=== PATIENT | female | born 1985 | race Caucasian/White ===

== ENCOUNTER 2022-07-16 19:48 | Emergency (ER) | payer MEDICAID, SELFPAY ==
--- NOTE | ~2022-07-16 | XR_ITS ---
EXAMINATION: XR chest 2V DATE: 07/16/2022 20:37 INDICATION: Chest pain TECHNIQUE: PA and lateral views of the chest are obtained. COMPARISON: None available FINDINGS: The lungs are free of acute opacities. No pleural effusion or pneumothorax. The cardiomedia stinal silhouette is normal. There is mild thoracic spondylosis. Surgical clips in the right upper qu adrant are likely from prior cholecystectomy. IMPRESSION: 1. No acute cardiopulmonary abnormality. Reviewed, dictated and finalized at location F.
[2022-07-16 19:51] VITALS: BP 126/85; PULSE 88; RESP 14; TEMP 36.6; O2SAT 100
--- NOTE | 2022-07-16 19:54 | ECG_ITS ---
Measurements Intervals [place] Rate: 89 P: 64 TN: 176 QRS: -15 QRSD: 114 T: 21 QT: 374 QTc: 457 Interpretive Statements SINUS RHYTHM DELAYED PRECORDIAL R/S TRANSITION BORDERLINE ECG NO PREVIOUS ECG AVAILABLE FOR COMPARISON Electronically Signed On 07-16-2022 21:55:17 CDT by Pete Santoro D.O.
[2022-07-16 20:09] LABS: Basophils Percent Auto 0.8 % (0.2-1.2); Eosinophils Absolute Auto 0.1 K/mm3 (0-0.3); Eosinophils Percent Auto 2.2 % (0-4.4); Hematocrit 26.3 % (37.0-47.0); Immature Granulocyte Absolute 0.01 K/mm3 (0.00-0.031); Immature Granulocyte Percent A 0.3 % (0-0.5); Lymphocytes Absolute Auto 1.42 K/mm3 (0.9-3.2); Lymphocytes Percent Auto 38.5 % (18.3-44.2); Mean Corpuscular HGB Conc 30.4 g/dl (32-36); Mean Corpuscular Hemoglobin 23.6 pg (26-34); Mean Corpuscular Volume 77.6 fl (80-100); Mean Platelet Volume 9.4 fl (7.4-10.4); Monocytes Absolute Auto 0.4 K/mm3 (0.1-0.6); Monocytes Percent Auto 10.3 % (2.6-8.5); Neutrophils Absolute Auto 1.8 K/mm3 (1.3-6.7); Neutrophils Percent Auto 47.9 % (45.5-73.1); Platelet Count Result 196 k/mm3 (150-375); Red Blood Count 3.39 M/mm3 (4.2-5.4); Red Cell Distribution Width 17.4 % (11.5-14.5); White Blood Count 3.7 K/mm3 (4.5-10.0)
[2022-07-16 20:19] LABS: INR 1.1; Prothrombin Time 13.8 Seconds (11.1-14.7)
[2022-07-16 20:20] LABS: Partial Thromboplastin Time 36.1 SECONDS (22.3-36.8)
[2022-07-16 20:25] LABS: Alanine Aminotransferase 99 U/L (6-35); Albumin Level 3.5 g/dL (3.5-5.1); Alkaline Phosphatase 118 U/L (38-126); Anion Gap 4 mmol/L (8-16); Aspartate Amino Transferase 75 U/L (14-36); Bilirubin,Total 0.4 mg/dL (0.2-1.3); Blood Urea Nitrogen 12 mg/dL (7-17); Carbon Dioxide 27 mmol/L (22-30); Chloride 107 mmol/L (98-107); Estimated CRCL calculation 151 ml/min; Estimated Glomerular Filt Rate > 60; Glucose 80 mg/dL (65-110); Lipase 35 U/L (23-300); Potassium 3.6 mmol/L (3.4-5.0); Sodium 138 mmol/L (137-145)
[2022-07-16 20:31] LABS: Troponin I < 0.012 ng/mL (0.000-0.034)
[2022-07-16 21:20] VITALS: BP 112/78; PULSE 78; RESP 20; O2SAT 99
--- NOTE | 2022-07-16 23:07 | ED.CHESTPAIN ---
HPI - Chest Pain General Chief Complaint: Chest Pain Stated Complaint: chest pain, anxiety Time Seen by Provider: 07/16/22 22:54 History of Present Illness HPI narrative: 36 year old female with a history of bacterial endocarditis, IVDU, here due to chest pain. Patient states she was at rest when she developed a severe right sided chest discomfort, similar to previous episodes of endocarditis. Was last treated with 6 weeks of antibiotics through her PICC last year. Denies any fevers, chills, nausea, vomiting. Related Data Allergies Allergy/AdvReac Type Severity Reaction Status Date / Time No Known Allergies Allergy Verified 07/16/22 23:12 Review of Systems Review of Systems: Gen.: Denies fevers or chills Eyes: Denies eye pain or visual change ENT: Denies congestion Respiratory: Denies shortness of breath or cough CV: Reports chest pain. GI: Denies abdominal pain nausea, emesis or diarrhea : denies burning, urgency, frequency or hematuria Musculoskeletal: Denies back pain or muscle pain Neuro: Denies numbness, tingling, weakness or focal weakness Skin: Denies rash Except as documented, all other systems reviewed and negative Exam Narrative: APPEARANCE: Well appearing, no pain in distress, well-nourished. Head: Normocephalic and atraumatic. EYES: PERRLA/EOMI, conjunctivae clear NOSE: No nasal drainage EARS: External ear normal in appearance THROAT: Oropharynx is clear. Mucous membranes are moist. NECK: Supple. No adenopathy, no masses. RESPIRATORY: Airway patent, respirations nonlabored. Clear to auscultation bilaterally, no rales, rhonchi, wheezing. CARDIOVASCULAR: systolic ejection murmur auscultated at the RUSB and LUSB. ABDOMINAL: Normoactive bowel sounds. Soft, nontender, nondistended. No rebound tenderness or guarding. MUSCULOSKELETAL: Extremities are warm and well-perfused. Moves all extremities well. No edema. NEURO: Normal speech. No focal neurologic deficits. SKIN: splinter hemorrhages noted. Skin is warm and dry. No rashes. PSYCHIATRIC: Normal affect/mood.. Course Vital Signs Vital signs: Vital Signs Temperature 97.9 F 07/16/22 19:51 Pulse Rate 88 07/16/22 19:51 Respiratory Rate 14 07/16/22 19:51 Blood Pressure 126/85 07/16/22 19:51 Pulse Oximetry 100 07/16/22 19:51 Oxygen Delivery Room Air 07/16/22 19:51 Temperature 97.9 F 07/16/22 19:51 Pulse Rate 78 07/16/22 21:20 Respiratory Rate 20 07/16/22 21:20 Blood Pressure 112/78 07/16/22 21:20 Pulse Oximetry 99 07/16/22 21:20 Oxygen Delivery Room Air 07/16/22 19:51 MDM - Chest Pain MDM Narrative Medical decision making narrative: 36-year-old female with a history of endocarditis and IV drug abuse here due to concerns over chest pain consistent with previous episodes of endocarditis. Patient is ill-appearing on exam does have a systolic ejection murmur and splinter hemorrhages that are certainly concerning for bacterial endocarditis given her risk factors. She does have neutropenia and anemia which she states is chronic. EKG and troponin are nonischemic. Blood cultures were collected, patient states that she prefers to go back to [facility] where she was admitted for this in the past although admission to [place] was offered. I spoke with the [facility] transfer center to arrange a transfer, but patient then eloped from the ED. She did not have an IV in place. Unclear why patient decided to leave but did voice my concerns of endocarditis to patient when I first met her. Per charge nurse patient just said that she was leaving and did not want to wait to speak to me. Lab Data 07/16/22 19:59 07/16/22 19:59 Labs: Lab Results 07/16/22 07/16/22 07/16/22 Range/Units 19:59 19:59 19:59 WBC 3.7 L (4.5-10.0) K/mm3 RBC 3.39 L (4.2-5.4) M/mm3 Hgb 8.0 L (12.0-15.0) g/dL Hct 26.3 L (37.0-47.0) % MCV 77.6 L (80-100) fl MCH 23.6 L (26-34) pg MCHC 30.4 L
[2022-07-16 23:17] LABS: Troponin I < 0.012 ng/mL (0.000-0.034)
[2022-07-16 23:22] LABS: CRP < 0.5 mg/dL (<1.0)
[2022-07-16 23:28] LABS: NT Pro B Type Natriuretic Pept < 20 pg/mL (19.9-100)
== END 2022-07-17 00:30 | disposition left against medical advice (07) ==
PROVIDERS: Emergency Medicine; Emergency Provider Physician Assistant; PCP Emergency Medicine
DX: R07.9 Chest pain, unspecified (principal); D70.9 Neutropenia, unspecified; D64.9 Anemia, unspecified; R94.31 Abnormal electrocardiogram [ECG] [EKG]
CPT/HCPCS: 36415; 71046; 80053; 83690; 83880; 84484; 85025; 85610; 85730; 86140; 93005; 99284